=== PATIENT | female | born 1945 | race Caucasian/White ===

== ENCOUNTER 2019-08-18 09:51 | Observation (INO) | payer MEDICARE ==
[~2019-08-18] VITALS: Ht 162.6 cm; Wt 68.7 kg
[2019-08-18] MEDS: DOCUSATE 100 MG CAPSULE PO SCH ×2 (09:00→20:54)
[~2019-08-18 09:51] MED LIST: ACETAMINOPHEN 650 MG/20.3 ML UDC PO PRN; ALPR0.5T6 PO; BISACODYL 10 MG SUPP PR PRN; DIPHENHYDRAMINE 50 MG CAPSULE PO PRN; EPINEPHRINE 1 MG/ML, 1ML ONE; FENTANYL PF 250 MCG/5ML ONE; HYDROcodone/APAP 5/325 TABLET PO PRN; KETOROLAC 60 MG/2 ML ONE; MAGNESIUM HYDROXIDE 8%, 30ML UDC PO PRN; MIDAZOLAM 1 MG/ML, 2ML ONE; ONDANSETRON 2MG/ML, 2ML IV PRN; ONDANSETRON 4 MG TABLET PO PRN; OXYcodone IR 5MG TABLET PO PRN; ROPIvacaine/PF 0.5%, 30 ML ONE; SENNA/DOCUSATE TABLET PO PRN; SODIUM CHLORIDE 0.9% 50 ML ONE; TRANEXAMIC ACID 100 MG/ML, 10ML ONE; VANCOMYCIN 1,000 MG ONE; ZOLPIDEM 5MG TABLET PO PRN
[2019-08-18 10:23] VITALS: BP 123/71
[2019-08-18] MEDS ORDERED: GABAPENTIN 300 MG CAPSULE PO ONE (10:30)
[2019-08-18] MEDS ORDERED: ACETAMINOPHEN 500 MG TABLET PO ONE (10:30)
[2019-08-18] MEDS ORDERED: LACTATED RINGERS 1,000 ML IV STA (10:33)
[2019-08-18] MEDS ORDERED: LACTATED RINGERS 1,000 ML IV SCH (11:00)
[2019-08-18] MEDS ORDERED: ROCURONIUM 10MG/ML,5ML ONE (11:10)
[2019-08-18] MEDS ORDERED: DEXAMETHASONE 4 MG/ML, 1ML ONE (11:10)
[2019-08-18] MEDS ORDERED: PROPOFOL 10 MG/ML, 20ML ONE (11:10)
[2019-08-18] MEDS ORDERED: SUCCINYLCHOLINE 20 MG/ML, 10ML ONE (11:10)
[2019-08-18] MEDS: FENTANYL PF 100 MCG/2ML IV PRN ×3 (12:25→13:00)
[2019-08-18] MEDS ORDERED: FENTANYL PF 100 MCG/2ML ONE (12:34)
[2019-08-18] MEDS ORDERED: ONDANSETRON 2MG/ML, 2ML ONE (12:34)
[2019-08-18] MEDS ORDERED: HYDROmorphone 1 MG/ML, 1ML INJ ONE ×2 (12:34→13:23)
[2019-08-18] MEDS: HYDROmorphone 1 MG/ML, 1ML INJ IV PRN ×4 (12:40→13:38)
[2019-08-18] MEDS ORDERED: METOCLOPRAMIDE 5 MG/ML, 2ML IV PRN (13:00)
[2019-08-18] MEDS ORDERED: KETOROLAC 30 MG/1 ML IV PRN (13:00)
[2019-08-18] MEDS ORDERED: LABETALOL 5MG/ML, 20ML IV PRN (13:00)
[2019-08-18] MEDS ORDERED: DIAZEPAM 5 MG/ML, 2ML IV PRN ×2 (13:00)
[2019-08-18] MEDS ORDERED: ONDANSETRON 2MG/ML, 2ML IVPush PRN (13:00)
[2019-08-18] MEDS ORDERED: MEPERIDINE/PF 25MG/0.5ML IVPush PRN (13:00)
[2019-08-18] MEDS ORDERED: PROMETHAZINE 25 MG/ML, 1ML IV PRN (13:00)
[2019-08-18] MEDS ORDERED: OXYcodone 5 MG/5 ML ORAL.SOL UDC PO PRN (13:00)
[2019-08-18] MEDS ORDERED: hydrALAzine 20 MG/ML, 1ML IV PRN (13:00)
[2019-08-18] MEDS ORDERED: ALBUTEROL SULFATE 2.5 MG/3 ML NPPB PRN (13:00)
[2019-08-18] MEDS ORDERED: OXYcodone 5 MG/5 ML ORAL.SOL UDC ONE (13:24)
[2019-08-18 14:15] VITALS: BP 108/59
[2019-08-18] MEDS: NS + 20MEQ KCL 1,000 ML IV SCH (16:49)
[2019-08-18] MEDS: ASPIRIN 81 MG TABLET EC PO SCH (17:58)
[2019-08-18] MEDS: CEFAZOLIN PMX 2GM/50ML 50 ML IVPB SCH (19:33)
[2019-08-18 19:34] VITALS: BP 99/58
[2019-08-19 00:56] VITALS: BP 90/46
[2019-08-19] MEDS: CEFAZOLIN PMX 2GM/50ML 50 ML IVPB SCH (03:23)
[2019-08-19 04:05] VITALS: BP 92/56
[2019-08-19] MEDS: NS + 20MEQ KCL 1,000 ML IV SCH ×2 (05:07→09:55)
[2019-08-19] MEDS: ASPIRIN 81 MG TABLET EC PO SCH (05:56)
[2019-08-19] MEDS ORDERED: DEXAMETHASONE 4 MG/ML, 1ML IVPush SCH (06:00)
[2019-08-19 07:50] VITALS: BP 105/65
[2019-08-19] MEDS ORDERED: ASPI81TA45 PO (08:59)
[2019-08-19] MEDS: DOCUSATE 100 MG CAPSULE PO SCH (09:00)
== END 2019-08-19 12:45 | disposition home or self-care (01) ==
LOC: OUT 09:51 → 4NE 14:14 → OUT 20:59 → 4NE 21:00 → DCLOUNGE 08-19 12:39
PROVIDERS: ADMIT Orthopaedic Surgery; ATTEND Orthopaedic Surgery
DX: M16.11 Unilateral primary osteoarthritis, right hip (principal); Z79.899 Other long term (current) drug therapy
CPT/HCPCS: 27130; 36415; 72170; 73523; 76000; 85014; 85018; 96365; 96366; 96375; 97161; 97165; C1713; C1776; G0378; J0171; J0330; J0690; J1100; J1170; J1885; J2250; J2405; J2704; J2795; J3010; J3370; J3480; J7120; Q0162